=== PATIENT | male | born 1965 | race Caucasian/White ===

== ENCOUNTER 2018-02-07 22:55 | Observation (INO) | payer OTHER ==
[2018-02-08] MEDS: GLUCAGON,HUMAN RECOMBINANT 1 MG/ML VIAL. IV (00:32)
[2018-02-08] MEDS ORDERED: fentaNYL PF VIAL 100 MCG/2 ML VIAL IV ×5 (01:00→07:45)
[2018-02-08] MEDS ORDERED: ONDANSETRON PF 4 MG/2 ML VIAL. IV (01:00)
[2018-02-08] MEDS ORDERED: PHENYLEPHRINE in 0.9% NACL PF 1 MG/10 ML SYRINGE. IV (01:00)
[2018-02-08 02:04] LABS: ADD MAN DIFF? NO; BASO # 0.1 x10^3/uL (0.0-0.2); BASO % 1 % (0-3); EOS # 0.1 x10^3/uL (0.0-0.7); EOS % 1 % (0-3); HEMATOCRIT 41.9 % (39.0-53.0); HEMOGLOBIN 14.4 g/dL (13.0-17.5); LYMPH # 1.9 x10^3/uL (1.0-4.8); LYMPH % 14 % (24-48); MEAN CORPUSCULAR HEMOGLOBIN 29 pg (25-35); MEAN CORPUSCULAR HGB CONC 34 g/dL (31-37); MEAN CORPUSCULAR VOLUME 85 fL (79-100); MONO # 0.8 x10^3/uL (0.0-1.1); MONO % 6 % (0-9); NEUT # 10.5 x10^3uL (1.8-7.7); NEUT % 78 % (31-73); PLATELET COUNT 330 x10^3/uL (140-400); RED BLOOD COUNT 4.95 x10^6/uL (4.30-5.70); RED CELL DISTRIBUTION WIDTH 13.4 % (11.5-14.5); WHITE BLOOD COUNT 13.4 x10^3/uL (4.0-11.0)
[2018-02-08] MEDS: FAMOTIDINE 20 MG/2 ML VIAL IVP (02:05)
[2018-02-08] MEDS: IV NORMAL SALINE 1000ML BAG 1,000 ML IV ×6 (02:10→20:42)
[2018-02-08 02:15] LABS: ANION GAP 5 (6-14); BLOOD UREA NITROGEN 14 mg/dL (8-26); BUN/CREATININE RATIO 14 (6-20); CALCIUM 8.8 mg/dL (8.5-10.1); CARBON DIOXIDE 29 mmol/L (21-32); CHLORIDE 108 mmol/L (98-107); GFR 78.5; GLUCOSE 113 mg/dL (70-99); POTASSIUM 3.9 mmol/L (3.5-5.1); SODIUM 142 mmol/L (136-145)
[2018-02-08 02:20] LABS: ALBUMIN/GLOBULIN RATIO 0.9 (1.0-1.7); ALK PHOS 85 U/L (46-116); ALT (SGPT) 25 U/L (16-63); AST (SGOT) 27 U/L (15-37); TOTAL BILIRUBIN 0.4 mg/dL (0.2-1.0); TOTAL PROTEIN 8.3 g/dL (6.4-8.2)
[2018-02-08] MEDS ORDERED: LIDOCAINE 1% PF 2 ML VIAL. ID ×2 (07:00→07:45)
[2018-02-08] MEDS ORDERED: MIDAZOLAM HCL/PF 2 MG/2 ML VIAL. IV ×2 (07:00→07:45)
[2018-02-08] MEDS ORDERED: IV RINGERS,LACTATED 1000ML 1,000 ML IV (07:31)
[2018-02-08] MEDS: IV RINGERS,LACTATED 1000ML 1,000 ML IV ×2 (07:33→14:59)
[2018-02-08] MEDS ORDERED: PROPOFOL 20 ML IV ×4 (07:48→09:01)
[2018-02-08] MEDS ORDERED: LIDOCAINE 2% PF Vial for OR 5 ML VIAL. (07:48)
[2018-02-08] MEDS ORDERED: ACETAMINOPHEN 650 MG/20.3 ML SOLUTION. PO (11:45)
[2018-02-08] MEDS: diphenhydrAMINE ORAL ELIXIR 12.5 MG/5 ML ML PO (12:16)
[2018-02-08 13:05] LABS: BILIRUBIN,URINE NEGATIVE (NEG); CLARITY,URINE CLEAR; COLOR,URINE YELLOW; GLUCOSE,URINE NEGATIVE (NEG); NITRITE,URINE NEGATIVE (NEG); PROTEIN,URINE NEGATIVE (NEG-TRACE); UROBILINOGEN,URINE 0.2 mg/dL (0.2 mg/dL)
[2018-02-08 13:27] LABS: BACTERIA,URINE 0 /HPF (0-FEW); RBC,URINE 0 /HPF (0-2); SQUAMOUS EPITHELIAL CELL,UR OCC /LPF; WBC,URINE 0 /HPF (0-4)
[2018-02-08] MEDS: IOHEXOL 300 MG/ML 100ML VIAL. IV (15:23)
[2018-02-08] MEDS ORDERED: IBUPROFEN 100 MG/5 ML ORAL.SUSP. PO ×2 (15:30→16:30)
[2018-02-08] MEDS ORDERED: CONTRAST GIVEN. MC (15:30)
[2018-02-08] MEDS: predniSONE 20 MG TABLET PO (16:00)
[2018-02-08] MEDS ORDERED: PIP/TAZO PER PHARMACY MC (16:00)
[2018-02-08] MEDS: PIPERACILLIN/TAZOBACTAM 3.375 GM in IV NORMAL SALINE 50ML 50 ML IV (16:00)
[2018-02-09] MEDS: PIPERACILLIN/TAZOBACTAM 3.375 GM in IV NORMAL SALINE 50ML 50 ML IV ×3 (00:16→12:00)
[2018-02-09 04:12] LABS: BASO % 0 % (0-3); EOS % 0 % (0-3); HEMATOCRIT 36.2 % (39.0-53.0); HEMOGLOBIN 12.4 g/dL (13.0-17.5); LYMPH # 1.3 x10^3/uL (1.0-4.8); LYMPH % 6 % (24-48); MEAN CORPUSCULAR HEMOGLOBIN 29 pg (25-35); MEAN CORPUSCULAR HGB CONC 34 g/dL (31-37); MEAN CORPUSCULAR VOLUME 85 fL (79-100); MONO # 1.3 x10^3/uL (0.0-1.1); MONO % 7 % (0-9); NEUT # 17.3 x10^3uL (1.8-7.7); NEUT % 87 % (31-73); PLATELET COUNT 257 x10^3/uL (140-400); RED BLOOD COUNT 4.24 x10^6/uL (4.30-5.70)
[2018-02-09 04:39] LABS: ALBUMIN/GLOBULIN RATIO 0.8 (1.0-1.7); ALK PHOS 60 U/L (46-116); ALT (SGPT) 21 U/L (16-63); ANION GAP 7 (6-14); AST (SGOT) 21 U/L (15-37); BLOOD UREA NITROGEN 14 mg/dL (8-26); BUN/CREATININE RATIO 14 (6-20); CALCIUM 8.1 mg/dL (8.5-10.1); CARBON DIOXIDE 25 mmol/L (21-32); CHLORIDE 109 mmol/L (98-107); GFR 78.5; GLUCOSE 128 mg/dL (70-99); SODIUM 141 mmol/L (136-145); TOTAL BILIRUBIN 1.1 mg/dL (0.2-1.0); TOTAL PROTEIN 6.8 g/dL (6.4-8.2)
[2018-02-09 04:57] LABS: ADD MAN DIFF? YES
[2018-02-09] MEDS: IV NORMAL SALINE 1000ML BAG 1,000 ML IV (05:57)
[2018-02-09 09:42] LABS: % LYMPHS 7 % (24-48); % MONOS 3 % (0-10); % SEGS 90 % (35-66); PLT ESTIMATE ADEQUATE (ADEQUATE)
[2018-02-09] MEDS: predniSONE 20 MG TABLET PO (09:51)
== END 2018-02-09 12:15 | disposition home or self-care (01) ==
LOC: 5 SOUTH 02-08 00:56 → ER 22:55
DX: T18.128A Food in esophagus causing other injury, initial encounter (principal); K31.89 Other diseases of stomach and duodenum; K21.0 Gastro-esophageal reflux disease with esophagitis; X58.XXXA Exposure to other specified factors, initial encounter; Y93.89 Activity, other specified; Y92.89 Other specified places as the place of occurrence of the external cause; Y99.8 Other external cause status; I10 Essential (primary) hypertension; J84.89 Other specified interstitial pulmonary diseases; K76.89 Other specified diseases of liver; Z82.49 Family history of ischemic heart disease and other diseases of the circulatory system; Z83.3 Family history of diabetes mellitus
CPT/HCPCS: 36415; 71045; 71260; 80053; 81001; 85007; 85025; 87040; 88305; 93005; 96365; 96375; 96376; 99285; C1757; G0378; G0379; J1610; J2370; J2543; J2704; J7030; J7120; J7512; Q9967; S0028